=== PATIENT | male | born 1985 | race Caucasian/White ===

== ENCOUNTER → 2025-07-08 | Outpatient (BNVA) | payer BC, OTHER, SELFPAY | END | disposition home or self-care (01) | PROVIDERS: PCP Nurse Practitioner Family; Referring Provider Nurse Practitioner Family; Visit Provider Urology | DX: Z30.2 Encounter for sterilization (principal); I10 Essential (primary) hypertension | CPT/HCPCS: 81003; 99202; G0463 ==

== ENCOUNTER 2025-08-25 06:20 | Day surgery (SDC) | payer BC, OTHER, SELFPAY ==
--- NOTE | 2025-08-24 11:50 | EKG_ITS ---
[facility] Test Date: 2025-08-24 Pat Name: WAI PFEIFFER Department: Room: - Gender: Male Chlorinator: [facility] : 1985 Requested By: Leeroy Grant Order Number: [id number] Reading MD: Leeroy Grant Measurements Intervals [place] Rate: 83 P: 35 CT: 148 QRS: 12 QRSD: 88 T: 8 QT: 352 QTc: 415 Interpretive Statements SINUS RHYTHM No previous ECG available for comparison /store/S0/[id number]
[2025-08-24 11:53] VITALS: BMI 30.9
[2025-08-24 13:00] LABS: Alanine Aminotransferase 41 U/L (10-49); Albumin, Serum 5.1 gm/dL (3.5-5.0); Albumin/Globulin Ratio 2.3 (1.2-2.2); Alkaline Phosphatase 74 U/L (46-116); Anion Gap 10 (7-16); Aspartate Amino Transferase 26 U/L (0-34); BUN/Creatinine Ratio 10 Ratio (12-20); Bilirubin,Total 0.5 mg/dL (0.3-1.2); Blood Urea Nitrogen 9 mg/dL (9-23); Calcium 9.2 mg/dL (8.3-10.6); Calcium (Corrected) 9.2 mg/dL (8.5-10.1); Carbon Dioxide 25.6 mMol/L (20.0-31.0); Chloride 104 mMol/L (98-107); Creatinine (Component) 0.9 mg/dL (0.6-1.3); Estimated Creatinine Clearance 114.9 mL/min (>60); Globulin 2.2 gm/dL (2.3-3.5); Glucose 134 mg/dL (74-106); Osmolality,Calculated 280 (275-295); Potassium 3.7 mMol/L (3.4-5.1); Sodium 140 mMol/L (136-145); Total Protein 7.3 gm/dL (5.7-8.2); eGFR > 60 See Note
[2025-08-25] VITALS (7 sets, daily range): BP systolic 110–149; BP diastolic 69–94; PULSE 82–99; RESP 12–16; TEMP 36.6–37.3; O2SAT 94–96; BMI 30.4
--- NOTE | 2025-08-25 07:25 | CHAP ---
Visited briefly with patient and gave encouragement and prayer.
--- NOTE | 2025-08-25 09:34 | SUR.PHASEI ---
pt received from OR in recovery bay 5. pt asleep but responds to voice, breathing unlabored on room air. v/s stable. pt dressing to scrotal area cdi. report received from Dr. Grant and Santos DE LA CRUZ.
--- NOTE | 2025-08-25 09:34 | PD.SUROPNT ---
Date of Procedure 08/25/25 Pre Op Diagnosis Elective sterilization Post Op Diagnosis Same Procedure Bilateral vasectomy Findings Bilateral vas no pathology Procedure Description Indication for procedure this is a 40-year-old gentleman he is with 3 children he desired bilateral vasectomy procedure and complications were discussed with patient in great detail informed consent is obtained he understood very well there is no warranty for permanent sterilization return today literature regarding bilateral vasectomy was provided to the patient he was appropriately identified by surgeon and operating room staff site scope and indications of the procedure were reconfirmed with the patient . Procedure patient was brought to the operating room in a satisfactory condition after appropriate premedication was put on the operating table in a supine position general anesthesia was given uneventfully parts were prepped and draped in a usual sterile fashion. Next the right vas deferens was palpated between 2 fingers and a thumb 2% lidocaine with quarter percent Marcaine was instilled appropriately vertical skin incision was made proper hemostasis was secured. Next the vas deferens was brought into the incision it was from its various fascial coverings between 2 silver clips centimeter of the vas deferens was excised. The lumen of the vas deferens was diathermized with coagulation diathermy distal end of the vas deferens was buried between various fascial layers. Skin was approximated with 3-0 chromic. Similar procedure was repeated on the opposite side. Next this sterile dressings were applied. Pressure bandage was given Patient having tolerated the procedure well and was sent to recovery room in a satisfactory condition to be discharged home with full postoperative instructions were verbally as well as in writing to be followed in urology office in 12 weeks' time. Pathology / specimen None Estimated Blood Loss 0.2 Surgeon Wilson Mathews MD Surgical Staff Operation Date: 08/25/25 08:30 Case Staff Anesthesiologist: Leeroy Grant
--- NOTE | 2025-08-25 09:53 | SUR.PHASEI ---
pt able to tolerate oral fluids without difficulty swallowing or nausea/vomiting.
--- NOTE | 2025-08-25 10:28 | SUR.PHASEII ---
pt awake and alert, breathing unlabored on room air. v/s stable. pt dressing to scrotal area cdi. pt able to ambulate to wheelchair with steady gait. d/c instructions given with Colleen in room, all questions answered. pt d/c via wheelchair with all belongings.
== END 2025-08-25 10:28 | disposition home or self-care (01) ==
PROVIDERS: Anesthesiology; Referring Provider Urology; Visit Provider Urology
PROC: (CPT 55250; principal; 2025-08-25 08:30)
DX: Z30.2 Encounter for sterilization (principal); Z01.810 Encounter for preprocedural cardiovascular examination
CPT/HCPCS: 55250; 36415; 80053; 93005; A4649; J1100; J2371; J2405; J2704; J3010; J3490; A9270